=== PATIENT | female | born 2000 | race Caucasian/White ===

== ENCOUNTER → 2023-09-29 08:47 | Outpatient (CLI) | payer OTHER, SELFPAY | PROVIDERS: Visit Provider Nurse Practitioner Family | DX: J02.9 Acute pharyngitis, unspecified (principal) | CPT/HCPCS: 87070; 87147 ==

== ENCOUNTER → 2023-11-10 06:46 | Outpatient (CLI) | payer OTHER, SELFPAY ==
--- NOTE | 2023-11-10 06:47 | DI.US.S_ITS ---
PROCEDURE: US PELVIC COMPLETE INDICATIONS: Pelvic and perineal pain TECHNIQUE: Real-time scanning was performed of the pelvic organs, with image documentation. Additional endovaginal scanning was necessary due to incomplete visualization of the adnexal and endometrial structures by transabdominal scanning. COMPARISON: None. FINDINGS: Uterus: Uterus is anteverted and normal in size at 7.9 x 4.4 x 3.3 cm. The myometrium is homogeneous. The endometrium measures 3 mm combined thickness. IUD in the endometrial canal. Ovaries: The right ovary measures 3.9 x 2.7 x 2.1 cm, with a calculated ovarian volume of 12 cc. The left ovary measures 3 x 2 x 1.8 cm, with a calculated ovarian volume of 6 cc. The ovaries have a normal sonographic appearance. Less than 12 follicles can be seen in each ovary. Crenulated anechoic right ovarian cyst measuring 1.8 x 0.8 x 0.7 cm. No adnexal masses are seen. Other: No pathologic free abdominal or pelvic fluid. IMPRESSION: 1. IUD centered in the endometrial canal. 2. Endometrium measures 3 mm. 3. No significant ovarian cysts. We strive to produce accurate, complete, and clear reports of imaging services. To assist us in improving patient care, this report was composed using standard report templates and voice recognition software. Therefore, it may contain abnormal punctuation, insertions and/or omissions. Occasional wrong-word or sound-alike substitutions may occur. Though we review the report and make efforts to correct it, we do recommend that the report be read carefully in proper context to recognize any text inaccuracies. Dictated by: Nawaf Gu M.D. on 11/10/2023 at 9:26 Approved by: Nawaf Gu M.D. on 11/10/2023 at 9:29
== END ==
PROVIDERS: Referring Provider Family Medicine; Visit Provider Family Medicine
DX: R10.2 Pelvic and perineal pain (principal); Z97.5 Presence of (intrauterine) contraceptive device
CPT/HCPCS: 76856